=== PATIENT | male | born 1995 | race Caucasian/White ===

== ENCOUNTER 2019-03-20 12:03 | Emergency (ER) | payer OTHER, SELFPAY ==
[2019-03-20] VITALS (9 sets, daily range): BP systolic 109–140; BP diastolic 56–84; PULSE 55–66; RESP 14–21; TEMP 36.4; O2SAT 97–100; BMI 19.2
[2019-03-20 12:42] LABS: Absolute Lymphocyte Count 1.73 X10^3/uL (0.83-4.51); Absolute Neutrophil Count 4.5 X10^3/uL (2.0-7.7); Basophil# 0.07 X10^3/uL; Eosinophil# 0.06 X10^3/uL; Eosinophils% 0.8 % (0-5); Hematocrit 44.9 % (40-54); Hemoglobin 16.1 g/dL (13.0-16.5); Lymphocyte # 1.73 X10^3/ul (4.0); Lymphocyte % 24.4 % (19-41); Mean Corp Hgb Conc 35.9 g/dL (32-36); Mean Corpuscular Hgb 31.3 pg (27.0-32.0); Mean Corpuscular Volume 87.4 fL (80-94); Mean Platelet Vol. 9.4 fl (6.2-12.0); Monocyte% 9.9 % (0-10); NRBC Flagged by Analyzer 0 % (0-5); Neutrophil % 63.6 % (47-70); Platelet Count 265 K/mm3 (150-450); RBC Distribution Width CV 11.6 % (11.6-14.6); RBC Distribution Width SD 37.4 fl (35.1-43.9); Red Blood Count 5.14 M/mm3 (4.6-6.2); White Blood Count 7.1 K/mm3 (4.4-11.0)
[2019-03-20 12:51] LABS: Anion Gap 9 (5-15); BUN 20 mg/dL (7-18); BUN/Creat Ratio 19.8 RATIO (10-20); Calcium,Total 9.6 mg/dL (8.5-10.1); Chloride 104 mmol/L (98-107); Creatinine, Serum 1.01 mg/dL (0.70-1.30); EST Glomerular Filtration Rate 99 mL/min (>60); Est Glom Filt Rate - Afr Amer 119 mL/min (>60); Estimated Creatinine Clearance 111.34 ml/min; Glucose 86 mg/dL (74-106); Potassium 3.4 mmol/L (3.5-5.1); Sodium Level 137 mmol/L (136-145)
--- NOTE | 2019-03-20 12:58 | ED.DCSUM_ITS ---
- ER Visit Summary Date of Service: 03/20/19 Chief Complaint: Suicide attempt History of Present Illness: The patient is a 23 M who attempted to kill himself today. He states that he got an argument with his girlfriend and was distraught as to what happens when he tried to hang himself. He took a belt and hung himself from the shower. His girlfriend found him and at one point he did lose conscious. He is unsure if he urinated on himself or not. He states that he has had no psychiatric admissions in the past. He is not currently seeing a mental health provider. Physical Examination: Vital signs are reviewed. HEENT exam reveals some abrasions to the neck on both sides. He has no stridor. Trachea is midline. His posterior oropharynx appears normal. Heart is regular rate and rhythm. Lungs are clear to auscultation bilaterally. Abdomen soft nontender. Skin exam is otherwise unremarkable except for the abrasion on the neck. His neurologic exam is normal. He does exhibit a flat affect and does voice suicidal thoughts. Test Results: Laboratory studies are normal for cannabis on his tox screen. Emergency Department Course and Treatment: The patient's pulse ox is normal. He is able to lay down for a whole minute without any shortness of breath or hypoxia. He was observed medically for multiple hours I feel he is medically cleared. He has no evidence of any damage to his larynx or any neck structures. He will need to be assessed by the psychiatric worker and will likely need to be transferred due to suicidal gesture Treatment Plan: [] Disposition: Likely transferred Impression: Suicidal gesture This note was generated with [employer] dictation software. It may contain incorrect words, spelling, and punctuation that were not noted in review of the chart prior to signing ED Disposition - Plan for ED Patient: Referrals: [facility] Doctor,Out of [Primary Care Provider] -
[2019-03-20 13:14] LABS: Alcohol, Blood (Medical)-Serum < 3.0 mg/dL
--- NOTE | 2019-03-20 13:24 | CM.ED ---
Social Work Consult: Suicidal thoughts with attempt Informant: Dr. Serrano Chief Complaint: Patient stating to have gotten in an argument with patient girlfriend this morning. Patient stating was angry and was going to go smoke THC but then grabbed a belt and went to the bathroom. Patient attempted to hang self in shower with belt around throat today. Found by patient girlfriend. Marital/Social History: Currently in a 2 year dating relationship with Patricia Higgins. Living Situation: Lives with Patricia in an apartment setting since 2018. Was living with Patricia's family prior. Patricia is 18 years old and currently working [employer]. Support/Resources: Patient identifies Patricia as main support system. Patient stating to also have a twin brother, Jeffry Jones that lives in [place], [place] that is supportive. Patient stating that patient parents check in but do not offer emotional support. History: None. Education/Employment: High school diploma. Currently working towards [employer] degree at [employer]. Mental health Treatment/History: Stating to have seen someone for depression in the past but no active counseling or psychiatric treatment. Patient stating that patient brother has OCD and patient believes to have the same. Patient denies any history of inpatient psychiatric treatment, but that patient brother has been in an inpatient facility in the past. Patient denies any medication to manage mental health stating I try to manage my depression without medication. Abuse Issues: Denies any stating I have a good family. Substance Abuse: Patient stating to use THC on a weekly basis and to have a medical card for THC. 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 Mental Statue Exam: A&Ox3 Appearance/General Behavior: Clean/Appropriate Mood/Affect: Appropriate Communication Pattern: Responds to questions. Initiates conversation. Thought Process: Denies any paranoid thoughts or hallucinations. Risk to self/others: Patient denies any active suicidal thoughts at this time, stating I was so happy to be able to breath air again. Patient girl friend found patient hanging in bathroom and interrupted the completion of suicide. Patient stating to be glad to be alive. Patient stating to have a history of cutting behavior but no active cutting. Patient denies any current triggers other then the argument with patient girlfriend this morning and stating we have our ups and downs. Assessment: Met with patient in room. Introduced self as well as clinical social worker role. Patient agreeable to met with this clinical social worker. Patient girlfriend wanted to leave the room and left. Patient giving this clinical social worker permission to speak with patient girlfriend about assessment and plan. Patient stating that Maleena is patient main support. Patient presenting as calm and pleasant during assessment. Patient stating my body feels amazing. Patient states to have passed out and to be glad to be alive again due to patient dogs. Patient with red nuno noted to patient neck, patient stating red nuno are from the belt. Collaborating with Dr. Serrano. Recommending 1:1 sitter. Recommending inpatient psychiatric placement. PLAN: Attempt to establish inpatient psychiatric placement pending medical clearance. Nelly CHEN, CHARITO
[2019-03-20 14:44] LABS: Amphetamine Urine VISTA NEGATIVE (<1000 ng/mL); Barbiturate Urine VISTA NEGATIVE (< 200 ng/mL); Benzodiazepine Urine VISTA NEGATIVE (< 200 ng/mL); Cocaine Urine VISTA NEGATIVE (< 300 ng/mL); Ecstacy Urine VISTA NEGATIVE (< 500 ng/mL); Methadone Urine VISTA NEGATIVE (< 300 ng/mL); PCP Urine VISTA NEGATIVE (< 25 ng/mL); THC Urine VISTA POSITIVE (< 50 ng/mL); Vista UDS pH Range 7
--- NOTE | 2019-03-20 14:55 | CM.ED ---
Social Work Medically cleared per Dr. Serrano. Referral faxed to [facility]. Was able to confirm that [facility] is in network with patient insurance. [facility] confirming to have bed opening and to be able to review case. Pending approval. Nelly Puga MSW, CHARITO
--- NOTE | 2019-03-20 16:37 | CM.ED ---
Social Work Telephone call to [facility], patient insurance is coming up as ineligible. Per registration at [facility] patient insurance is coming up as eligible. [facility] Andreia to speak with records supervisor for further guidance. Will follow up within the hour in the event that referral needs to be placed to another facility. Nelly CHEN, CHARITO
--- NOTE | 2019-03-20 17:31 | CM.ED ---
Social Work Telephone call to [facility]. [facility] stating to have figured out insurance and to now be waiting on doctor approval. Andreia to contact this social media editor back with update on referral. Nelly CHEN, CHARITO
--- NOTE | 2019-03-20 18:11 | CM.ED ---
[facility]. Dr. Smith, unit AB, report: [phone] xt. [phone] Notified patient and medical staff. All agreeable to plan. [facility] faxed. Nelly Puga MSW, CHARITO
--- NOTE | 2019-03-20 19:36 | CM.ED ---
Social Work Telephone call from patient mother, Lourdes. Lourdes requesting for referral to be faxed to [facility] at this is a better facility. L[place]des aware that patient has been accepted by [place]. [place] also requesting for patient to discharge to home with family versus an inpatient facility, collaborating with Dr. Rajan. Patient is not released to be discharged to home with family. Patient continues to have a [facility] on file. Telephone call to [facility], referral made. Pending approval. Will continue to follow. Nelly CHEN, CHARITO
--- NOTE | 2019-03-20 20:13 | CM.ED ---
Social Work Telephone call to [facility], clinicals continue to be reviewed. Nelly Puga MSW, CHARITO
--- NOTE | 2019-03-20 22:04 | CM.ED ---
Social Work Telephone call from [facility], patient accepted. Dr. Manjinder [place], [facility], for report. Notified patient, patient mother, and medical team, all agreeable to plan. [facility] faxed. Telephone call to [facility], Canceled referral. Nelly CHEN, CHARITO
[2019-03-20] MEDS: LORazepam 0.5 MG Tablet PO (23:59)
[2019-03-21] VITALS (8 sets, daily range): BP systolic 114–116; BP diastolic 61–81; PULSE 52–67; RESP 14–16; O2SAT 97
[2019-03-21] MEDS: LORazepam 0.5 MG Tablet PO (02:08)
== END 2019-03-21 08:45 ==
LOC: ED 14:16
PROVIDERS: Emergency Provider Emergency Medicine
DX: T71.162A Asphyxiation due to hanging, intentional self-harm, initial encounter (principal); S10.91XA Abrasion of unspecified part of neck, initial encounter; Z72.0 Tobacco use; X83.8XXA Intentional self-harm by other specified means, initial encounter; Y93.89 Activity, other specified; Y92.002 Bathroom of unspecified non-institutional (private) residence as the place of occurrence of the external cause; Y99.8 Other external cause status
CPT/HCPCS: 80048; 80307; 80320; 85025; 99285; A4216; G0480